=== PATIENT | male | born 1970 | race Caucasian/White ===

== ENCOUNTER 2016-10-28 10:06 | Emergency (ER) | payer BC, OTHER ==
[2016-10-28 10:36] VITALS: BP 105/68; PULSE 86; TEMP 98.1; BMI 25.8
[2016-10-28] MEDS ORDERED: KETOROLAC TROMETHAMINE 60 MG/2 ML VIAL IM ONE (11:21)
--- NOTE | 2016-10-28 11:23 | PDOC ---
History of Present Illness - General Chief Complaint: Back Pain Stated Complaint: BACK PAIN Time Seen by Provider: 10/28/16 11:07 History Source: Patient Exam Limitations: No Limitations - History of Present Illness Initial Comments: 10/28/16 11:21 45 yr male historyof HTN, chronic low back pain states he injured low back at work yesterday getting into his truck. Pt sttes he has recently been having more back pain. Radiates to left buttock and leg. no numbness or tingling, no saddle anesthesia denies incontinence of bowel or bladder. Pt is able to walk. Past History - Past Medical History Allergies/Adverse Reactions: Allergies Allergy/AdvReac Type Severity Reaction Status Date / Time No Known Allergies Allergy Verified 10/28/16 10:32 Home Medications: Ambulatory Orders Lisinopril [Prinivil -] 10 mg PO DAILY 01/31/14 Cyclobenzaprine HCl [Flexeril -] 10 mg PO TID PRN #21 tablet 10/28/16 Naproxen [Naprosyn -] 500 mg PO BID PRN #14 tablet 10/28/16 HTN: Yes - Psycho/Social/Smoking Cessation Hx Anxiety: No Suicidal Ideation: No Smoking History: Former smoker Have you smoked in the past 12 months: Yes If you are a former smoker, when did you quit?: 2017 Information on smoking cessation initiated: No Hx Alcohol Use: Yes (SOCIAL) Substance Use Type: None *Physical Exam - Vital Signs Last Vital Signs Temp Pulse Resp BP Pulse Ox 98.1 F 86 16 105/68 99 10/28/16 10:32 10/28/16 10:32 10/28/16 10:32 10/28/16 10:32 10/28/16 10:32 - Physical Exam General Appearance: Yes: Nourished, Appropriately Dressed HEENT: positive: EOMI, VEE Neck: positive: Supple. negative: Tender Respiratory/Chest: positive: Lungs Clear, Normal Breath Sounds Cardiovascular: positive: Regular Rhythm, Regular Rate Gastrointestinal/Abdominal: positive: Normal Bowel Sounds, Soft Musculoskeletal: positive: Normal Inspection, Muscle Spasm (lower left lumbar ) . negative: CVA Tenderness, CVA Tenderness (R), Vertebral Tenderness Extremity: positive: Normal Capillary Refill Integumentary: positive: Normal Color, Dry, Warm Neurologic: positive: Fully Oriented, Alert, Normal Mood/Affect, Normal Response , Motor Strength 5/5, Other (positive right leg straight raise at 45 degress ) . negative: Babinski Medical Decision Making - Medical Decision Making 10/28/16 12:05 cc: acute on chronic low back pain worse since yesterday getting into truck states he sprained low back no incontinence, no saddle anesthesia radiates to buttock and thigh right side will give toradol and flexeril pt states he has had xrays before has not followed with ortho but agrees he needs to as the pain is more constant. 10/28/16 12:07 *DC/Admit/Observation/Transfer Diagnosis at time of Disposition: Back pain at L4-L5 level Sciatica Qualifiers: Laterality: right Qualified Code(s): M54.31 - Sciatica, right side - Discharge Dispostion Disposition: HOME Condition at time of disposition: Good - Prescriptions Prescriptions: Cyclobenzaprine HCl [Flexeril -] 10 mg PO TID PRN #21 tablet PRN Reason: Muscle Spasms Naproxen [Naprosyn -] 500 mg PO BID PRN #14 tablet PRN Reason: Pain - Referrals Referrals: Bart Suazo MD [Primary Care Provider] - Mack Chau MD [Staff Physician] - - Patient Instructions Additional Instructions: apply ice every 2hrs for 20 minutes and alternate with warm heating pad to lower back take the medication as directed for at least the next [address] OR OPERATE MACHINERY OR DRINK ALCOHOL WHILE TAKING FLEXERIL follow with the orthopedist for follow up Return if any worsening symptoms
[2016-10-28] MEDS ORDERED: KETOROLAC TROMETHAMINE 60 MG/2 ML VIAL ONE (11:25)
== END 2016-10-28 11:43 | disposition home or self-care (01) ==
LOC: JERFT 10:06
PROC: 3E0233Z Introduction of Anti-inflammatory into Muscle, Percutaneous Approach (ICD-10-PCS; principal; 2016-10-28)
DX: M54.41 Lumbago with sciatica, right side (principal); I10 Essential (primary) hypertension; G89.29 Other chronic pain; Z87.891 Personal history of nicotine dependence
CPT/HCPCS: 99281-25

== ENCOUNTER 2019-02-20 08:45 | Day surgery (SDC) | payer BC | END 2019-02-20 11:05 | disposition home or self-care (01) | LOC: JASU-ENDO 08:45 ==

== ENCOUNTER 2020-04-28 11:57 | Emergency (ER) | payer BC, OTHER ==
[2020-04-28 12:05] VITALS: BP 160/97; PULSE 85; TEMP 97; BMI 25.8
[2020-04-28] MEDS ORDERED: KETOROLAC TROMETHAMINE 30 MG/1 ML VIAL IM ONE (12:17)
[2020-04-28] MEDS ORDERED: KETOROLAC TROMETHAMINE 30 MG/1 ML VIAL ONE (12:21)
--- NOTE | 2020-04-28 12:22 | PDOC ---
History of Present Illness - General Chief Complaint: Back Pain Stated Complaint: BACK PAIN Time Seen by Provider: 04/28/20 12:13 History Source: Patient Exam Limitations: No Limitations - History of Present Illness Initial Comments: 04/28/20 12:17 49-year-old male no significant past medical history presents the ED with right- sided back pain. Patient states that he works for [employer] was lifting up his tool bag felt a strain in his lower back and immediate pain. Patient denies the pain traveling down his legs or any bowel bladder incontinence or saddle esthesia. Patient states that the pain is worse upon standing and weightbearing especially on his right lower extremity. Patient not take any medicine for the pain. Pt otherwise denies: fevers, chills, syncope, lightheadedness, dizziness, headaches, neck pain, chest pain, shortness of breath, palpitations, abdominal pain, nausea, vomiting, diarrhea, constipation. Past History - Medical History Allergies/Adverse Reactions: Allergies Allergy/AdvReac Type Severity Reaction Status Date / Time No Known Allergies Allergy Verified 04/28/20 12:05 Home Medications: Ambulatory Orders Lisinopril [Prinivil] 10 mg PO DAILY 01/31/14 Etanercept [Enbrel] 50 mg SQ WEEKLY 02/17/19 Cyclobenzaprine HCl [Flexeril 10 mg] 10 mg PO BID PRN #30 tablet 04/28/20 Ibuprofen [Ibu] 600 mg PO TID 10 Days #30 tablet 04/28/20 Asthma: Yes ( A CHILD) COPD: No HTN: Yes - Psycho-Social/Smoking History Smoking History: Current some day smoker Have you smoked in the past 12 months: Yes Number of Cigarettes Smoked Daily: 1 If you are a former smoker, when did you quit?: 2017 Information on smoking cessation initiated: No 'Breaking Loose' booklet given: 02/20/19 - Substance Abuse Hx (Audit-C & DAST Scrn) How often the patient has a drink containing alcohol: 2-4 times / month Score: In Men: 4 or > Positive; In Women: 3 or > Positive: 2 Screen Result (Pos requires Nsg. Audit-10AR): Negative *Physical Exam - Vital Signs Last Vital Signs Temp Pulse Resp BP Pulse Ox 97 F L 85 18 160/97 99 04/28/20 12:03 04/28/20 12:03 04/28/20 12:03 04/28/20 12:03 04/28/20 12:03 - Physical Exam 04/28/20 12:18 Gen: AAOx 3, no acute distress, comfortable, no signs of respiratory distress HENT: atraumatic, normocephalic with no laceration or contusion. Nasal mucosa without erythema. Oropharynx without erythema or exudates. Mucous membranes moist. EYES: PERRL, EOM intact, conjunctiva pink NECK: supple; trachea midline; no JVD, no lymphadenopathy, or thyromegaly CV: RRR no murmurs, gallops, or rubs. CHEST: CTA b/l no wheezing, rales or rhonchi ABD: +BS/ND. no TTP; soft, no rebound, no guarding EXTREMITY: no cyanosis or erythema. 2+ dorsalis pedis, posterior tibial, and radial pulse. No pedal edema; no calf swelling or tenderness SKIN: no rash, warm and dry, no diaphoresis HEME: no purpura or ecchymosis NEURO: normal speech, CN II-XII intact, sensation intact, no cerebellar deficits MS: 5/5 strength in all extremities, FROM intact in all extremities. Back: TTP over lumbar paravertebrals w/o midline tenderness -CVAT, + SLR on R Medical Decision Making - Medical Decision Making 04/28/20 12:19 49-year-old male acute right back pain Vital signs stable Will give Toradol for symptomatic relief Patient reports improvement of symptoms with Toradol Patient appears well safe stable for discharge Ibuprofen Flexeril sent to patient's preferred pharmacy Patient was instructed not to drive or operate heavy machinery while taking flexeril. The patient was also instructed not to take the medication with any other sedating medications and not to drink alcohol while taking the medication. Supportive care instructions explained and given to pt. Reasons to return emergently to ER explained and given. Importance of follow up with PMD and other specialists as indicated stressed to pt. Pt verbalized understanding of instructions. Pt to follow up with PMD in 2 days. Discharge - Discharge Information Problems reviewed: Yes Clinical Impression/Diagnosis: Back pain at L4-L5 level Condition: Stable Disposition: HOME - Additional Discharge Information Prescriptions: Cyclobenzaprine HCl [Flexeril 10 mg] 10 mg PO BID PRN #30 tablet PRN Reason: Back Pain Ibuprofen [Ibu] 600 mg PO TID 10 Days #30 tablet - Follow up/Referral Referrals: Mack Chau MD [Staff Physician] - - Patient Discharge Instructions Patient Printed Discharge Instructions: DI for Back Pain With Sciatica Additional Instructions: YOU MUST SEE YOUR PCP - Post Discharge Activity Work/Back to School Note: Back to Work
== END 2020-04-28 12:29 | disposition home or self-care (01) ==
LOC: JERFT 11:57
PROC: 3E023GC Introduction of Other Therapeutic Substance into Muscle, Percutaneous Approach (ICD-10-PCS; principal; 2020-04-28)
DX: M54.5 Low back pain (principal)
CPT/HCPCS: 99284-25

== ENCOUNTER 2020-05-19 12:54 | Emergency (ER) | payer BC, OTHER ==
[2020-05-19 12:57] VITALS: BP 140/89; PULSE 100; TEMP 97.2; BMI 25.8
--- NOTE | 2020-05-19 13:19 | PDOC ---
History of Present Illness - General Chief Complaint: Pain Stated Complaint: BACK PAIN Time Seen by Provider: 05/19/20 12:59 History Source: Patient Exam Limitations: No Limitations - History of Present Illness Initial Comments: 05/19/20 13:34 Patient is a 49-year-old male who presents to the ED for back pain with right lower extremity radiculopathy since 04/28/2020. He states he lifted something at work and felt some pain in his low back. About 1 hour after the injury the pain got much worse. At that time he only had back pain but he did not have any radiculopathy. He followed up with Dr. Chau and was sent for an MRI for further evaluation. The patient denies any fevers or chills. He states he is having decreased sensation in the right groin and anterior aspect of his right lower extremity. That has been ongoing for several weeks. Dr. Chau has seen the patient after the radiculopathy and is aware of this problem. He does not follow-up with orthopedics for another 4 days and presents to the ED because he states he does not feel safe to return to work and does not have off clearance after Wednesday05/20/20. The patient states that he has had this pain in the past with the right lower extremity numbness and he was told it was secondary to herniated discs. Past History - Medical History Allergies/Adverse Reactions: Allergies Allergy/AdvReac Type Severity Reaction Status Date / Time No Known Allergies Allergy Verified 05/19/20 12:57 Home Medications: Ambulatory Orders Lisinopril [Prinivil] 10 mg PO DAILY 01/31/14 Etanercept [Enbrel] 50 mg SQ WEEKLY 02/17/19 Cyclobenzaprine HCl [Flexeril 10 mg] 10 mg PO BID PRN #30 tablet 04/28/20 Ibuprofen [Ibu] 600 mg PO TID 10 Days #30 tablet 04/28/20 Methylprednisolone [Medrol Dose Geraldo] 4 mg PO ASDIR #21 tablet 05/19/20 Asthma: Yes ( A CHILD) COPD: No HTN: Yes - Psycho-Social/Smoking History Smoking History: Current some day smoker Have you smoked in the past 12 months: Yes Number of Cigarettes Smoked Daily: 1 If you are a former smoker, when did you quit?: 2017 Information on smoking cessation initiated: No 'Breaking Loose' booklet given: 02/20/19 - Substance Abuse Hx (Audit-C & DAST Scrn) How often the patient has a drink containing alcohol: Monthly or less Score: In Men: 4 or > Positive; In Women: 3 or > Positive: 1 Screen Result (Pos requires Nsg. Audit-10AR): Negative Review of Systems - Review of Systems Comments:: 05/19/20 13:38 - Review of Systems Able to Perform ROS?: Yes Constitutional: No: Fever, Chills, Loss of Appetite, Night Sweats, Weakness HEENTM: No: Eye Pain, Vision changes, Ear Pain, Throat Pain, Throat Swelling, Mouth Pain, Difficulty Swallowing Respiratory: No: Cough, Shortness of Breath, Wheezing, Sputum Production Cardiac (ROS): No: Chest Pain, Chest Tightness, Palpitations, Irregular Heart Beat, Edema ABD/GI: No: Nausea, Vomiting, Abdominal Pain, Diarrhea : No Dysuria, No Hematuria, No Frequency, No Urgency, No Vaginal Discharge/Pain, No Penile Discharge/Pain Musculoskeletal: No: Muscle Pain, Joint Pain, Muscle Weakness, Neck Pain; right low back pain with right lower extremity radiculopathy Integumentary: No: Lesions, Rash Neurological: No: Headache, Numbness, Tingling, Weakness, Speech Difficulties *Physical Exam - Vital Signs Last Vital Signs Temp Pulse Resp BP Pulse Ox 97.2 F L 100 H 18 140/89 99 05/19/20 12:55 05/19/20 12:55 05/19/20 12:55 05/19/20 12:55 05/19/20 12:55 - Physical Exam 05/19/20 13:39 - Physical Exam General Appearance: Nourished, Appropriately Dressed, No Distress HEENT: EOMI, Normal Voice, Hearing Grossly Normal Neck: Supple, No Lymphadenopathy (R), No Lymphadenopathy (L), No Rigidity, No Decreased range of motion Respiratory/Chest: Lungs Clear, Normal Breath Sounds. No Respiratory Distress, No Accessory Muscle Use Cardiovascular: Regular Rhythm, Regular Rate, S1, S2 Gastrointestinal/Abdominal: Normal Bowel Sounds, Soft. Non-tender, No Guarding, No Rebound, No Rigidity Musculoskeletal: Normal Inspection. No Decreased Range of Motion; mild midline lumbar tenderness to palpation with right lower back tenderness to palpation. Subjective sensation decreased medial aspect of the right thigh, no saddle anesthesia. Strength 5/5 bilateral lower extremities. EHL intact bilaterally. normal gait. Extremity: Normal Capillary Refill, Normal Inspection Integumentary: Normal Color, Dry. No Rash Neurologic: behavioral consultant II-XII NML intact, Fully Oriented, Alert, Normal Mood/Affect, Normal Response Medical Decision Making - Medical Decision Making 05/19/20 13:16 Assessment: Patient is a 49-year-old male with low back pain with radiculopathy on the right. Plan: -Medrol Dosepak sent to the patient's pharmacy -Patient to follow-up with Dr. Chau for his MRI results as soon as possible -He understands and agrees with this treatment plan and he is stable for discharge. Discharge - Discharge Information Problems reviewed: Yes Clinical Impression/Diagnosis: Low back pain potentially associated with radiculopathy Condition: Stable Disposition: HOME - Additional Discharge Information Prescriptions: Methylprednisolone [Medrol Dose Geraldo] 4 mg PO ASDIR #21 tablet - Follow up/Referral - Patient Discharge Instructions Patient Printed Discharge Instructions: DI for Lumbar Radiculopathy Additional Instructions: Get plenty of rest and avoid any strenuous activity. Avoid any heavy lifting or strenuous physical activity. Take the Medrol Dosepak as prescribed. Follow-up with your orthopedist for repeat evaluation and for follow-up of the MRI. - Post Discharge Activity Work/Back to School Note: Back to Work
== END 2020-05-19 13:38 | disposition home or self-care (01) ==
LOC: JERFT 12:54
DX: M54.16 Radiculopathy, lumbar region (principal)
CPT/HCPCS: 99282-25

== ENCOUNTER 2024-04-24 04:46 | Day surgery (SDC) | payer BC, OTHER ==
[2024-04-19 08:26] VITALS: BMI 25.2
[2024-04-24 09:26] VITALS: TEMP 97
[2024-04-24 09:50] VITALS: BP 112/74; PULSE 85; RESP 18
== END 2024-04-24 10:00 | disposition home or self-care (01) ==
LOC: JASU-ENDO 04:46
PROVIDERS: ATTEND Internal Medicine Gastroenterology
PROC: 0DBL8ZX Excision of Transverse Colon, Via Natural or Artificial Opening Endoscopic, Diagnostic (ICD-10-PCS; 2024-04-24)
PROC: 0DBP8ZX Excision of Rectum, Via Natural or Artificial Opening Endoscopic, Diagnostic (ICD-10-PCS; principal; 2024-04-24 09:00)
DX: Z12.11 Encounter for screening for malignant neoplasm of colon (principal); D12.8 Benign neoplasm of rectum; D12.3 Benign neoplasm of transverse colon; K64.8 Other hemorrhoids; Z86.010 Personal history of colon polyps